=== PATIENT | female | born 1980 | race Caucasian/White ===

== ENCOUNTER 2016-11-22 16:23 | Emergency (ER) | payer OTHER ==
--- NOTE | 2016-11-22 17:35 | ERPHSYRPT ---
- History of Present Illness Time Seen by Provider: 11/22/16 17:15 Source: patient Exam Limitations: no limitations Patient Subjective Stated Complaint: back pain intermittent for 2 months Triage Nursing Assessment: states has intermittent mid back pain. denies injury. states she saw kelsey penn one month ago for same s/s and put on flexeril. pain started back up after no injury 2 days. pain with deep breath or movment--nonradiating mid back pain. denies pain with urination. no bruising or swelling from site Timing/Duration: day(s) (2) Method of Injury: bending, lifting (20# boxes at work) Quality: dull Back Pain Location: T-spine Severity of Pain-Max: moderate Severity of Pain-Current: moderate Modifying Factors: Improves With: nothing Associated Symptoms: denies symptoms, tingling in legs/feet Previous symptoms: no prior history Allergies/Adverse Reactions: No Known Drug Allergies Allergy (Unverified 11/22/16 16:37) Home Medications: No Home Meds 1 ea UD 11/22/16 [History] Hx Tetanus, Diphtheria Vaccination/Date Given: Yes Hx Influenza Vaccination/Date Given: No Hx Pneumococcal Vaccination/Date Given: No Immunizations Up to Date: Yes - Review of Systems Constitutional: No Symptoms Eyes: No Symptoms Ears, Nose, & Throat: No Symptoms Respiratory: No Symptoms Cardiac: No Symptoms Abdominal/Gastrointestinal: No Symptoms Genitourinary Symptoms: No Symptoms Musculoskeletal: Back Pain, Neck Pain, No Fall Skin: No Symptoms Neurological: No Symptoms Psychological: No Symptoms Endocrine: No Symptoms - Past Medical History Pertinent Past Medical History: Yes Psycho-Social History: Depression - Past Surgical History Past Surgical History: Yes Gastrointestinal: Appendectomy Female Surgical History: Tubal Ligation - Social History Smoking Status: Current every day smoker Exposure to second hand smoke: No Drug Use: none Patient Lives Alone: No - Female History Hx Last Menstrual Period: 4 days - Nursing Vital Signs Temperature: 97.8 F Temperature Source: Oral Pulse Rate: 113 Respiratory Rate: 18 Pain Intensity: 7 - Physical Exam General Appearance: mild distress Eye Exam: eyes nml inspection Ears, Nose, Throat Exam: normal ENT inspection, pharynx normal Neck Exam: normal inspection, non-tender, supple, full range of motion Respiratory Exam: normal breath sounds, lungs clear Cardiovascular Exam: regular rate/rhythm, normal heart sounds, normal peripheral pulses Gastrointestinal Exam: soft, normal bowel sounds Back Exam: normal inspection, normal range of motion Extremity Exam: normal inspection, normal range of motion, pelvis stable Peripheral Pulses: dorsalis-pedis (R): 3+, dorsalis-pedis (L): 3+ Neurologic Exam: alert, oriented x 3, cooperative Skin Exam: normal color, warm, dry SpO2 Interpretation: normal SpO2: 98 Oxygen Delivery: Room Air - Course Nursing assessment & vital signs reviewed: Yes - Radiology Exams T-Spine X-ray Interpretation: Interpreted by me, Negative Ordered Tests: Active Orders 24 hr Category Date Time Status THORACIC SPINE (AP,LAT,SWIMM) Stat Exams 11/22/16 17:29 Taken - Progress Progress: improved Counseled pt/family regarding: need for follow-up, rad results - Departure Time of Disposition: 19:45 Departure Disposition: Home Clinical Impression: Strain of thoracic region Qualifiers: Encounter type: initial encounter Qualified Code(s): S29.019A - Strain of muscle and tendon of unspecified wall of thorax, initial encounter Condition: Stable Critical Care Time: No Prescriptions: Dicloxacillin Sodium 500 mg PO QID #40 capsule Naproxen 1 tab PO BID #20 tablet
[2016-11-22 18:23] VITALS: BP 120/66
[2016-11-22 18:57] VITALS: PULSE 113; O2SAT 98
--- NOTE | 2016-11-23 08:46 | XRAY ---
Indication: Upper back pain. No known injury. Comparison: None Frontal/lateral thoracic spine demonstrates 12 typical rib-bearing thoracic vertebral segments with mild levoscoliosis centered at the T11 level and right pulmonary calcified granulomas. No other bony, articular, or soft tissue abnormalities.
== END 2016-11-22 19:04 | disposition home or self-care (01) ==
LOC: ED 16:23
DX: S29.019A Strain of muscle and tendon of unspecified wall of thorax, initial encounter (principal); M54.9 Dorsalgia, unspecified; X50.0XXA Overexertion from strenuous movement or load, initial encounter; X50.9XXA Other and unspecified overexertion or strenuous movements or postures, initial encounter; Y92.511 Restaurant or cafe as the place of occurrence of the external cause; Y99.0 Civilian activity done for income or pay
CPT/HCPCS: 72072; 99283